=== PATIENT | male | born 1935 | race African-American/Black ===

== ENCOUNTER 2017-04-09 15:42 | Emergency (ER) | payer MEDICARE, MEDICAID ==
[~2017-04-09] VITALS: Ht 172.7 cm; Wt 85.0 kg
[~2017-04-09 15:42] MED LIST: ALLO100T PO; AMIODARONE PO; AMLO10TA80 PO; ATOR20TA65 PO; CALCIUM CHLORIDE 1GM/10ML SYR IV ONE; CHOL50006 PO; COR25 PO; DEXTROSE 50% WATER 50ML SYRINGE IV ONE; EPINEPHRINE 0.1MG/ML (1:10,000) 10ML SYR ONE; FEBU40TA PO; FURO-151 PO; METO5TAB69 PO; OLME20TA14 PO; POTA99TA4 PO; SODIUM BICARBONATE 7.5% 0.9 MEQ/ML 50ML SYR IV ONE; XAR15 PO; metformin PO
[2017-04-09 15:48] VITALS: BP 0/0
== END 2017-04-09 15:48 | disposition expired ==
LOC: ER 15:48
DX: I46.9 Cardiac arrest, cause unspecified (principal); S09.90XA Unspecified injury of head, initial encounter; T22.20XA Burn of second degree of shoulder and upper limb, except wrist and hand, unspecified site, initial encounter; T21.23XA Burn of second degree of upper back, initial encounter; I11.0 Hypertensive heart disease with heart failure; I50.9 Heart failure, unspecified; Z79.01 Long term (current) use of anticoagulants; Z95.0 Presence of cardiac pacemaker; W18.30XA Fall on same level, unspecified, initial encounter; Y93.89 Activity, other specified; Y92.89 Other specified places as the place of occurrence of the external cause; Y99.8 Other external cause status
CPT/HCPCS: 82962; 92950; 99285; J0171; J3490